=== PATIENT | female | born 1985 | race Caucasian/White ===

== ENCOUNTER → 2020-09-04 10:09 | Outpatient (BNVA) | payer BC, SELFPAY | PROVIDERS: Family Provider Electrodiagnostic Medicine; PCP Electrodiagnostic Medicine; Visit Provider Obstetrics & Gynecology | DX: Z01.419 Encounter for gynecological examination (general) (routine) without abnormal findings (principal); Z78.9 Other specified health status | CPT/HCPCS: 88175 ==

== ENCOUNTER → 2020-10-29 10:32 | Outpatient (BNVA) | payer BC, SELFPAY | PROVIDERS: Family Provider Electrodiagnostic Medicine; PCP Electrodiagnostic Medicine; Visit Provider Nurse Practitioner Family | DX: Z20.828 Contact with and (suspected) exposure to other viral communicable diseases (principal) | CPT/HCPCS: 87635 ==

== ENCOUNTER → 2022-09-26 16:58 | Outpatient (BNVA) | payer BC, SELFPAY | PROVIDERS: PCP Electrodiagnostic Medicine; Visit Provider Nurse Practitioner Women's Health | DX: R53.83 Other fatigue (principal); N93.9 Abnormal uterine and vaginal bleeding, unspecified; Z12.4 Encounter for screening for malignant neoplasm of cervix | CPT/HCPCS: 83036; 84439; 84443; 87624 ==

== ENCOUNTER 2022-10-16 15:02 | Outpatient (CLI) | payer BC, OTHER, SELFPAY ==
--- NOTE | 2022-10-16 15:09 | USCV_ITS ---
Rosa Bliss Age: 36 Gender: F : 1985 Exam Date: 10/16/2022 15:31 Ordering Phys: Parveen Cormier DO Technologist: Latoya Field Exam Location: [facility] – [place] Indication: heart murmur BP: 120 / 73 HR: 64 Rhythm: Sinus Technical Quality: Adequate MEASUREMENTS (Male / Female) Normal Values 2D ECHO LV Diastolic Diameter PLAX 4.0 cm 4.2 - 5.9 / 3.9 - 5.3 cm LV Systolic Diameter PLAX 2.3 cm LV Chamber Size 2.9 cm IVS Diastolic Thickness 1.0 cm 0.6 - 1.0 / 0.6 - 0.9 cm IVS Systolic Thickness 1.3 cm LVPW Diastolic Thickness 1.1 cm 0.6 - 1.0 / 0.6 - 0.9 cm LVPW Systolic Thickness 1.6 cm RV Chamber Size 2.0 cm LVOT Diameter 2.0 cm LV Ejection Fraction 2D Teich 72.5 % LV Ejection Fraction MOD 2C 76.9 % LV Ejection Fraction 2C AL 77.4 % LA Diameter 3.1 cm LA Width 2.7 cm LA Height 4.3 cm RA Width 2.6 cm RA Height 4.5 cm Aorta at Sinotubular Diameter 2.6 cm IVC Diameter 1.6 cm M-MODE Aortic Annulus Diameter 3.4 cm LA Ao Ratio MM 0.9 MV E Point Septal Separation 0.2 cm DOPPLER AV Peak Velocity 183.0 cm/s LVOT Peak Velocity 101.0 cm/s AV Area Cont Eq vti 2.3 cm squared AV Area Cont Eq pk 1.8 cm squared MV Area PHT 3.5 cm squared Mitral E to A Ratio 2.3 MV E' Velocity 63.0 cm/s Mitral E to MV E' Ratio 7.0 Mitral E to LV E' Lateral Ratio 6.4 Mitral E to LV E' Septal Ratio 7.6 TR Peak Velocity 146.8 cm/s TR Peak Gradient 8.6 mmHg TR Mean Velocity 106.7 cm/s TR Mean Gradient 4.9 mmHg TR Velocity Time Integral 35.9 cm TV Peak E Velocity 79.0 cm/s Right Atrial Pressure 3.0 mmHg Pulmonary Artery Systolic Pressu 11.6 mmHg RV Acceleration Time 0.1 s RV Ejection Time 0.4 s RV AcT/ET 0.4 FINDINGS Left Ventricle Normal left ventricular size and systolic function, EF 68 %. No regional wall motion abnormalities. Right Ventricle The right ventricle is normal in size and function. Right Atrium The right atrium is normal in size. Left Atrium The left atrium is normal in size. Mitral Valve Trace mitral valve regurgitation. Aortic Valve Appears to be tricuspid with no gross abnormalities Tricuspid Valve Trace tricuspid valve regurgitation. Pulmonic Valve No gross abnormalities noted Pericardium Normal pericardium without effusion. Aorta Normal ascending aorta dimension. IVC The inferior vena cava appears normal. CONCLUSIONS Normal left ventricular size and systolic function, EF 68 %. No regional wall motion abnormalities. Normal cardiac chamber sizes. No significant stenotic or regurgitant lesions There is no pericardial effusion. There are no intracardiac masses. No previous study is available for comparison. Dr Leonid Louie MD FACC (Electronically Signed) Final Date: 16 October 2022 19:45 S
== END 2022-10-16 15:03 | disposition home or self-care (01) ==
PROVIDERS: PCP Electrodiagnostic Medicine; Visit Provider Electrodiagnostic Medicine
DX: R01.1 Cardiac murmur, unspecified (principal)
CPT/HCPCS: 76830; 93306

== ENCOUNTER 2022-10-17 09:57 | Outpatient (CLI) | payer BC, OTHER, SELFPAY | END 2022-10-17 09:58 | disposition home or self-care (01) | LOC: SLEEP 10-18 09:57 | PROVIDERS: PCP Electrodiagnostic Medicine; Visit Provider Electrodiagnostic Medicine | DX: G47.10 Hypersomnia, unspecified (principal); G47.33 Obstructive sleep apnea (adult) (pediatric) | CPT/HCPCS: G0399 ==

== ENCOUNTER 2024-10-13 19:39 | Emergency (ER) | payer BC, OTHER, SELFPAY ==
[2024-10-13 19:44] VITALS: BP 166/94; PULSE 81; RESP 17; TEMP 37; O2SAT 98; BMI 32.4
--- NOTE | 2024-10-13 19:47 | ECG_ITS ---
[employer] Test Date: 2024-10-13 Pat Name: Rosa Bliss Department: Room: Gender: Female Tool Engineer: : 1985 Requested By: Elvia Cm Order Number: [id number] Montiel MD: Jordan Fonseca M.D. Measurements Intervals [place] Rate: 74 P: 60 OR: 147 QRS: 11 QRSD: 78 T: 1 QT: 347 QTc: 387 Interpretive Statements SINUS RHYTHM POSSIBLE ANTERIOR MYOCARDIAL INFARCTION , OF INDETERMINATE AGE [30 ms Q WAVE IN V3/V4, OR R < 0.2 mV IN V4] No previous ECG available for comparison Electronically Signed On 10-15-2024 18:41:48 POT RELINER by Jordan Fonseca M.D. [id number]
--- NOTE | 2024-10-13 19:50 | XRR_ITS ---
PROCEDURE INFORMATION: Exam: XR Chest Exam date and time: 10/13/2024 8:10 PM Age: 38 years old Clinical indication: Cough TECHNIQUE: Imaging protocol: Radiologic exam of the chest. Views: 1 view. COMPARISON: No relevant prior studies available. FINDINGS: Lungs: Unremarkable. No consolidation. Pleural spaces: Unremarkable. No pleural effusion. No pneumothorax. Heart/Mediastinum: Unremarkable. No cardiomegaly. Bones/joints: Unremarkable. XR/XR chest 1V portable [id number] IMPRESSION: No acute findings.
--- NOTE | 2024-10-13 19:54 | ECG_ITS ---
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 Measurements Intervals [place] Rate: 71 P: 64 [place]: 145 QRS: 9 QRSD: 71 T: 16 QT: 364 QTc: 398 Interpretive Statements SINUS RHYTHM POSSIBLE LEFT ATRIAL ENLARGEMENT [-0.1mV P-WAVE IN V1/V2] LOW QRS VOLTAGE IN PRECORDIAL LEADS [QRS DEFLECTION < 1.0 mV IN CHEST LEADS] POSSIBLE ANTERIOR MYOCARDIAL INFARCTION , OF INDETERMINATE AGE [30 ms Q WAVE IN V3/V4, OR R < 0.2 mV IN V4] No previous ECG available for comparison Electronically Signed On 10-15-2024 18:36:26 CELL CHANGER by Jordan Fonseca M.D. [id number]
--- NOTE | 2024-10-13 20:01 | ED_ITS ---
Documented by User: Elvia Cm MD 10/14/24 10:42 HPI - Chest Pain 2 General: Chief Complaint: Chest Pain Stated Complaint: coughing Time Seen by Provider: 10/13/24 19:50 Source: patient Mode of arrival: ambulatory Limitations: no limitations History of Present Illness: 38-year-old female states that she been having some chest and back pain been going on throughout the day states it has been sharp pains in her lower chest states she is also had a mild cough she states her pain is currently resolved she denies any worse or improving factors denies any shortness of breath denies any fever Associated symptoms: Deny abdominal pain, dyspnea, fever(s), nausea or vomiting Related Data Home Medications Medication Instructions Recorded Confirmed docosahexaenoic acid 200 mg mg PO 09/26/22 10/08/24 capsule (Algal [place]-3 DHA) lactobacillus combination no.9 4 PO 09/26/22 10/08/24 billion cell capsule (Adult 50 Plus Probiotic) multivitamin 1 tab PO DAILY 09/26/22 10/08/24 sertraline 25 mg tablet 25 mg PO DAILY 09/26/22 10/08/24 Previous Rx's Medication Instructions Recorded norethindrone acetate 1.5 1 tab PO DAILY #84 tabs 11/25/23 mg-ethinyl estradiol 30 mcg tablet (Junel) Allergies Allergy/AdvReac Type Severity Reaction Status Date / Time No Known Allergies Allergy Verified 10/08/24 12:51 Review of Systems 2 Const: Denies: fever(s), chills, body aches or change in appetite ENMT: Denies: throat pain or dental pain Card: Reports: chest pain Resp: Reports: non-productive cough; Denies: dyspnea GI: Denies: abdominal pain, nausea, vomiting or diarrhea Musc: Reports: back pain; Denies: neck pain Skin/Breast: Denies: rash Neuro: Denies: headache(s) PFSH ED 2 PFSH: Medical History Tricuspid regurgitation Mitral regurgitation No pertinent past medical history neghx: htn,dm,thyroid,dvt/pe PCP: [facility] History of seizures as a child States no seizures since kindergarten. Dysmenorrhea Surgical History No pertinent past surgical history Family History Grandmother Hypertension Maternal Heart disease Maternal Hypercholesterolemia Maternal Breast cancer Maternal; Diagnosed at age 30-40. Negative Gene testing. Uterine cancer Maternal; Patient states she had breast cancer and uterine or ovarian cancer at the same time. She is not sure which she had, uterine or ovarian. Grandfather Diabetes Paternal Father Colon cancer, Onset Age: 52 Mother Hypertension Denies family history of Stroke Social History Smoking and tobacco/nicotine status: never used tobacco/nicotine Physical Exam 2 Const: COMMON NORMALS: no acute distress, patient oriented x3 and healthy appearing HENMT: COMMON NORMALS: normocephalic and atraumatic HEAD & SCALP: n ormocephalic and atraumatic Eye: COMMON NORMALS: conjunctivae normal CONJUNCTIVA: Yes conjunctivae normal Neck/C-Spine: COMMON NORMALS: full ROM and supple Chest: COMMONS NORMALS: normal inspection of the chest and normal palpation of entire chest wall Resp: COMMON NORMALS: normal respiratory effort, No retractions, No use of accessory muscles and clear to auscultation bilaterally AUSCULTATION: clear to auscultation bilaterally Cardio: COMMON NORMALS: regular rate, regular rhythm and No murmurs present (Cardio) RATE: regular rate RHYTHM: regular rhythm GI: COMMON NORMALS: Normal to inspection, nondistended, normoactive bowel sounds present, Soft to palpation, non-tender and no masses PALPATION: Yes Soft to palpation Extremity: COMMON NORMALS: normal to inspection and full ROM Neuro: COMMON NORMALS: patient oriented x3, moves all extremities and no focal motor deficits Psych: COMMON NORMALS: mental status grossly normal, Normal thought process present and cooperative THOUGHT PROCESS: Normal thought process present Skin: COMMON NORMALS: no rashes or lesions noted and no wounds GENERAL SKIN EXAM: no rashes or lesions noted Course 2 Vital Signs: Vital signs: Vital Signs Temperature 98.6 F 10/13/24 19:44 Pulse Rate 70 10/13/24 22:41 Respiratory Rate 15 10/13/24 22:41 Blood Pressure 143/92 10/13/24 22:41 Pulse Oximetry 100 10/13/24 22:41 Oxygen Delivery Me thod Room Air 10/13/24 21:00 MDM - Chest Pain Medical Decision Making Care of patient discussed with me and transferred by Dr. Cm. Reported chest pain and cough throughout the day, no history of IN or stroke. Chest x-ray and EKG were unremarkable. Her troponin was normal and the rest of her blood work normal aside from very minimally elevated D-dimer. For this CTA ordered demonstrating no signs of PE or other concerning cardiothoracic findings. Very little concern for cardiac related chest pain, her vitals have been stable throughout ED stay, encouraged her to pursue outpatient cardiac workup through primary care and return with any new or worsening. She is comfortable with this plan and return precautions given. Patient presents for chest pain she has been well-appearing here no signs of ACS D-dimer was mildly positive CT showed no PE she is stable for discharge follow-up with PCP return if worsening. Medical Records I reviewed the patient's medical records. Lab Data I reviewed the patient's lab results. 10/13/24 20:07 10/13/24 20:07 Radiology Impressions Chest X-Ray 10/13/24 19:50 IMPRESSION: No acute findings. Chest CTA 10/13/24 20:58 IMPRESSION: 1. No pulmonary emboli. 2. No focal consolidations. Laboratory Results WBC 5.16 10^3/uL (3.29-11.43) 10/13/24 20:07 RBC 4.75 10^6/uL (3.85-5.65) 10/13/24 20:07 Hgb 13.40 g/dL (11.27-16.99) 10/13/24 20:07 Hct 41.9 % (36-47) 10/13/24 20:07 MCV 88.2 fl (85-98) 10/13/24 20:07 MCH 28.2 pg (27-33) 10/13/24 20:07 MCHC 32.0 g/dL (30-55) 10/13/24 20:07 RDW 13.7 % (12.1-15.1) 10/13/24 20:07 Plt Count 300 10^3/cmm (157-399) 10/13/24 20:07 MPV 10.4 fL (7.4-10.4) 10/13/24 20:07 Neut % (Auto) 43.2 % 10/13/24 20:07 Lymph % (Auto) 45.9 % 10/13/24 20:07 [place]aca % (Auto) 9.5 % 10/13/24 20:07 Eos % (Auto) 0.4 % 10/13/24 20:07 Baso % (Auto) 0.8 % 10/13/24 20:07 Neut # (Auto) 2.23 10^3/uL (1.8-7.7) 10/13/24 20:07 Lymph # (Auto) 2.4 10^3/uL (0.8-4.8) 10/13/24 20:07 [place] # (Auto) 0.5 10^3/uL (0.2-0.9) 10/13/24 20:07 Eos # (Auto) 0.0 10^3/uL (0.0-0.8) 10/13/24 20:07 Baso # (Auto) 0.0 10^3/uL (0.0-0.1) 10/13/24 20:07 Nucleated RBC % (auto) 0 % 10/13/24 20:07 Nucleated RBCs # 0.0 /100WBC 10/13/24 20:07 D-Dimer 0.64 ug/mLFEU (0-0.59) H 10/13/24 20:07 Sodium 136 mmol/L (136-145) 10/13/24 20:07 Potassium 4.0 mmol/L (3.5-5.1) 10/13/24 20:07 Chloride 102 mmol/L (98-107) 10/13/24 20:07 Carbon Dioxide 24 mmol/L (22-29) 10/13/24 20:07 Anion Gap 14.0 (5-19) 10/13/24 20:07 BUN 13 mg/dL (6-20) 10/13/24 20:07 Creatinine 0.7 mg/dL (0.5-0.9) 10/13/24 20:07 GFR Calculation 94.2 mL/min (90-130) 10/13/24 20:07 Glucose 137 mg/dL (65-115) H 10/13/24 20:07 Calculated Osmolality 284 mOsm/kg (285-295) L 10/13/24 20:07 Calcium 9.4 mg/dL (8.5-10.5) 10/13/24 20:07 Total Bilirubin 0.2 mg/dL (0.15-1.2) 10/13/24 20:07 AST 14 U/L (0-32) 10/13/24 20:07 ALT 17 U/L (0-33) 10/13/24 20:07 Alkaline Phosphatase 90 U/L (35-105) 10/13/24 20:07 Troponin T Baseline < 6 ng/L (0-10) 10/13/24 20:07 Troponin T 120 Minute 6.00 ng/L (0-10) 10/13/24 22:08 Delta Troponin T 0.66679 ABS# (0-10) 10/13/24 22:08 Total Protein 7.3 g/dL (6.6-8.7) 10/13/24 20:07 Albumin 4.0 g/dL (3.5-5.2) 10/13/24 20:07 Globulin 3.3 g/dL (1.3-4.6) 10/13/24 20:07 Lipase 55 U/L (13-60) 10/13/24 20:07 HCG, Qual Negative (Negative) 10/13/24 20:07 All radiology interpretation(s) finalized by discharge EKG Data EKG 1: I personally reviewed and interpreted this EKG as follows: EKG interpretation date: 10/13/24 EKG interpretation time: 19:48 Interpretation: nsr hr [address] elevation qrs 71qtc 387 Discharge Plan Discharge Patient Disposition: Home Clinical Impression: Chest pain Qualifiers: Chest pain type: unspecified Qualified Code(s): R07.9 - Chest pain, unspecified Condition: Stable Prescriptions: No Action sertraline 25 mg tablet 25 mg PO DAILY multivitamin Tablet 1 tab PO DAILY Adult 50 Plus Probiotic 4 billion cell capsule PO Algal [place]-3 DHA 200 mg capsule PO norethindrone ac-eth estradiol [ ()] 1.5-30 mg-mcg tablet 1 tab PO DAILY Qty: 84 5RF Rx Instructions: continuous CHC's-- allow for adequate refills x 1 year Discharge Orders: Discharge ED (Routine); Ordered 10/13/24 Ordered By: Nicholas Santamaria Referrals: Parveen Cormier DO [Primary Care Provider] - 4-7 days Discharge Diet: Advance as tolerated Discharge Activity: Resume usual activity Patient Instructions: Chest Pain (ED) Coding Level of Care Code ED Manager Administrative for Antonio Fwd Documented by User: NIK De La Torre 10/13/24 22:08 HPI - Chest Pain 2 General: Chief Complaint: Chest Pain Stated Complaint: coughing Time Seen by Provider: 10/13/24 19:50 Related Data Home Medications Medication Instructions Recorded Confirmed docosahexaenoic acid 200 mg mg PO 09/26/22 10/08/24 capsule (Algal [place]-3 DHA) lactobacillus combination no.9 4 PO 09/26/22 10/08/24 billion cell capsule (Adult 50 Plus Probiotic) multivitamin 1 tab PO DAILY 09/26/22 10/08/24 sertraline 25 mg tablet 25 mg PO DAILY 09/26/22 10/08/24 Previous Rx's Medication Instructions Recorded norethindrone acetate 1.5 1 tab PO DAILY #84 tabs 11/25/23 mg-ethinyl estradiol 30 mcg tablet (Junel) Allergies Allergy/AdvReac Type Severity Reaction Status Date / Time No Known Allergies Allergy Verified 10/08/24 12:51 PFSH ED 2 PFSH: Medical History Tricuspid regurgitation Mitral regurgitation No pertinent past medical history neghx: htn,dm,thyroid,dvt/pe PCP: [facility] History of seizures as a child States no seizures since kindergarten. Dysmenorrhea Surgical History No pertinent past surgical history Family History Grandmother Hypertension Maternal Heart disease Maternal Hypercholesterolemia Maternal Breast cancer Maternal; Diagnosed at age 30-40. Negative Gene testing. Uterine cancer Maternal; Patient states she had breast cancer and uterine or ovarian cancer at the same time. She is not sure which she had, uterine or ovarian. Grandfather Diabetes Paternal Father Colon cancer, Onset Age: 52 Mother Hypertension Denies family history of Stroke Social History Smoking and tobacco/nicotine status: never used tobacco/nicotine Course 2 Vital Signs: Vital signs: Vital Signs Temperature 98.6 F 10/13/24 19:44 Pulse Rate 70 10/13/24 22:41 Respiratory Rate 15 10/13/24 22:41 Blood Pressure 143/92 10/13/24 22:41 Pulse Oximetry 100 10/13/24 22:41 Oxygen Delivery Me thod Room Air 10/13/24 21:00 MDM - Chest Pain Medical Decision Making Care of patient discussed with me and transferred by Dr. Cm. Reported chest pain and cough throughout the day, no history of IN or stroke. Chest x-ray and EKG were unremarkable. Her troponin was normal and the rest of her blood work normal aside from very minimally elevated D-dimer. For this CTA ordered demonstrating no signs of PE or other concerning cardiothoracic findings. Very little concern for cardiac related chest pain, her vitals have been stable throughout ED stay, encouraged her to pursue outpatient cardiac workup through primary care and return with any new or worsening. She is comfortable with this plan and return precautions given. Lab Data 10/13/24 20:07 10/13/24 20:07 Radiology Impressions Chest X-Ray 10/13/24 19:50 IMPRESSION: No acute findings. Chest CTA 10/13/24 20:58 IMPRESSION: 1. No pulmonary emboli. 2. No focal consolidations. Laboratory Results WBC 5.16 10^3/uL (3.29-11.43) 10/13/24 20:07 RBC 4.75 10^6/uL (3.85-5.65) 10/13/24 20:07 Hgb 13.40 g/dL (11.27-16.99) 10/13/24 20:07 Hct 41.9 % (36-47) 10/13/24 20:07 MCV 88.2 fl (85-98) 10/13/24 20:07 MCH 28.2 pg (27-33) 10/13/24 20:07 MCHC 32.0 g/dL (30-55) 10/13/24 20:07 RDW 13.7 % (12.1-15.1) 10/13/24 20:07 Plt Count 300 10^3/cmm (157-399) 10/13/24 20:07 MPV 10.4 fL (7.4-10.4) 10/13/24 20:07 Neut % (Auto) 43.2 % 10/13/24 20:07 Lymph % (Auto) 45.9 % 10/13/24 20:07 [place]aca % (Auto) 9.5 % 10/13/24 20:07 Eos % (Auto) 0.4 % 10/13/24 20:07 Baso % (Auto) 0.8 % 10/13/24 20:07 Neut # (Auto) 2.23 10^3/uL (1.8-7.7) 10/13/24 20:07 Lymph # (Auto) 2.4 10^3/uL (0.8-4.8) 10/13/24 20:07 [place] # (Auto) 0.5 10^3/uL (0.2-0.9) 10/13/24 20:07 Eos # (Auto) 0.0 10^3/uL (0.0-0.8) 10/13/24 20:07 Baso # (Auto) 0.0 10^3/uL (0.0-0.1) 10/13/24 20:07 Nucleated RBC % (auto) 0 % 10/13/24 20:07 Nucleated RBCs # 0.0 /100WBC 10/13/24 20:07 D-Dimer 0.64 ug/mLFEU (0-0.59) H 10/13/24 20:07 Sodium 136 mmol/L (136-145) 10/13/24 20:07 Potassium 4.0 mmol/L (3.5-5.1) 10/13/24 20:07 Chloride 102 mmol/L (98-107) 10/13/24 20:07 Carbon Dioxide 24 mmol/L (22-29) 10/13/24 20:07 Anion Gap 14.0 (5-19) 10/13/24 20:07 BUN 13 mg/dL (6-20) 10/13/24 20:07 Creatinine 0.7 mg/dL (0.5-0.9) 10/13/24 20:07 GFR Calculation 94.2 mL/min (90-130) 10/13/24 20:07 Glucose 137 mg/dL (65-115) H 10/13/24 20:07 Calculated Osmolality 284 mOsm/kg (285-295) L 10/13/24 20:07 Calcium 9.4 mg/dL (8.5-10.5) 10/13/24 20:07 Total Bilirubin 0.2 mg/dL (0.15-1.2) 10/13/24 20:07 AST 14 U/L (0-32) 10/13/24 20:07 ALT 17 U/L (0-33) 10/13/24 20:07 Alkaline Phosphatase 90 U/L (35-105) 10/13/24 20:07 Troponin T Baseline < 6 ng/L (0-10) 10/13/24 20:07 Troponin T 120 Minute 6.00 ng/L (0-10) 10/13/24 22:08 Delta Troponin T 0.64739 ABS# (0-10) 10/13/24 22:08 Total Protein 7.3 g/dL (6.6-8.7) 10/13/24 20:07 Albumin 4.0 g/dL (3.5-5.2) 10/13/24 20:07 Globulin 3.3 g/dL (1.3-4.6) 10/13/24 20:07 Lipase 55 U/L (13-60) 10/13/24 20:07 HCG, Qual Negative (Negative) 10/13/24 20:07 Discharge Plan Discharge Patient Disposition: Home Clinical Impression: Chest pain Qualifiers: Chest pain type: unspecified Qualified Code(s): R07.9 - Chest pain, unspecified Condition: Stable Prescriptions: No Action sertraline 25 mg tablet 25 mg PO DAILY multivitamin Tablet 1 tab PO DAILY Adult 50 Plus Probiotic 4 billion cell capsule PO Algal [place]-3 DHA 200 mg capsule PO norethindrone ac-eth estradiol [ (21)] 1.5-30 mg-mcg tablet 1 tab PO DAILY Qty: 84 5RF Rx Instructions: continuous CHC's-- allow for adequate refills x 1 year Discharge Orders: Discharge ED (Routine); Ordered 10/13/24 Ordered By: Nicholas Santamaria Referrals: Parveen Cormier DO [Primary Care Provider] - 4-7 days Discharge Diet: Advance as tolerated Discharge Activity: Resume usual activity Patient Instructions: Chest Pain (ED) Coding Level of Care Code ED Manager Administrative for Antonio Guerrero
[2024-10-13 20:08] VITALS: BP 157/101; PULSE 84; RESP 16; O2SAT 99
[2024-10-13 20:17] LABS: Basophils % 0.8 %; Eosinophils % 0.4 %; Hematocrit 41.9 % (36-47); Lymphocytes # 2.4 10^3/uL (0.8-4.8); Lymphocytes % 45.9 %; Mean Corpuscular Hemoglobin 28.2 pg (27-33); Mean Corpuscular Volume 88.2 fl (85-98); Mean Platelet Volume 10.4 fL (7.4-10.4); Monocytes # 0.5 10^3/uL (0.2-0.9); Monocytes % 9.5 %; Neutrophils # 2.23 10^3/uL (1.8-7.7); Neutrophils % 43.2 %; Nucleated Red Blood Cells % 0 %; Platelet Count 300 10^3/cmm (157-399); Red Blood Count 4.75 10^6/uL (3.85-5.65); Red Cell Distribution Width 13.7 % (12.1-15.1); White Blood Count 5.16 10^3/uL (3.29-11.43)
[2024-10-13 20:43] LABS: HCG, Serum Qual Negative (Negative)
[2024-10-13 20:47] LABS: Troponin(5th) Baseline < 6 ng/L (0-10)
[2024-10-13 20:50] LABS: Alanine Aminotransferase 17 U/L (0-33); Alkaline Phosphatase 90 U/L (35-105); Aspartate Amino Transferase 14 U/L (0-32); Blood Urea Nitrogen 13 mg/dL (6-20); Calcium 9.4 mg/dL (8.5-10.5); Carbon Dioxide 24 mmol/L (22-29); Chloride 102 mmol/L (98-107); Creatinine Clr Calc Pharmacy 112.2912; Globulin 3.3 g/dL (1.3-4.6); Glomerular Filtration Rate 94.2 mL/min (90-130); Glucose 137 mg/dL (65-115); Lipase 55 U/L (13-60); Osmolality Calculated 284 mOsm/kg (285-295); Sodium 136 mmol/L (136-145); Total Bilirubin 0.2 mg/dL (0.15-1.2); Total Protein 7.3 g/dL (6.6-8.7)
[2024-10-13 20:55] LABS: D Dimer 0.64 ug/mLFEU (0-0.59)
--- NOTE | 2024-10-13 20:58 | CTR_ITS ---
PROCEDURE INFORMATION: Exam: CTA Chest With Contrast Exam date and time: 10/13/2024 9:05 PM Age: 38 years old Clinical indication: Shortness of breath; Additional info: SOB TECHNIQUE: Imaging protocol: Computed tomographic angiography of the chest with contrast. Exam focused on the arteries. 3D rendering (Not supervised by radiologist): MIP and/or 3D reconstructed images were created by the technologist. Radiation optimization: All CT scans at this facility use at least one of these dose optimization techniques: automated exposure control; mA and/or kV adjustment per patient size (includes targeted exams where dose is matched to clinical indication); or iterative reconstruction. Contrast material: OMNI 350; Contrast volume: 57 ml; Contrast route: INTRAVENOUS (IV); COMPARISON: CR (CHEST, ) 10/13/2024 8:10 PM RADIATION DOSE METRICS: Total DLP (mGy-cm): 790.13 FINDINGS: Pulmonary arteries: No pulmonary emboli. Aorta: Unremarkable. No aortic aneurysm. No aortic dissection. 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 Lungs: No focal consolidations. Pleural spaces: Unremarkable. No pneumothorax. No pleural effusion. Heart: Unremarkable. No cardiomegaly. No pericardial effusion. Lymph nodes: Unremarkable. No enlarged lymph nodes. Gallbladder and biliary ducts: Multiple stones in the gallbladder with no pericholecystic fluid. Bones/joints: Unremarkable. No acute fracture. Soft tissues: Unremarkable. CT/CT angio chest PE protcl [id number] IMPRESSION: 1. No pulmonary emboli. 2. No focal consolidations.
[2024-10-13 21:00] VITALS: BP 155/89; PULSE 65; RESP 16; O2SAT 99
[2024-10-13] MEDS: iohexol 350 mg/mL 500 mL Btl (per mL) IV (21:32)
[2024-10-13 22:29] LABS: Troponin 5 2HR Delta 0.00001 ABS# (0-10)
[2024-10-13 22:41] VITALS: BP 143/92; PULSE 70; RESP 15; O2SAT 100
== END 2024-10-13 22:18 | disposition home or self-care (01) ==
PROVIDERS: Emergency Provider Emergency Medicine; PCP Electrodiagnostic Medicine
DX: R07.9 Chest pain, unspecified (principal)
CPT/HCPCS: 36415; 71045; 71275; 80053; 83690; 84484; 84703; 85025; 85378; 93005; 99285

== ENCOUNTER → 2024-10-26 08:36 | Outpatient (BNVA) | payer BC, OTHER, SELFPAY | PROVIDERS: PCP Electrodiagnostic Medicine; Visit Provider Nurse Practitioner Women's Health | DX: N92.6 Irregular menstruation, unspecified (principal) | CPT/HCPCS: 76830 ==

== ENCOUNTER → 2025-02-10 09:20 | Outpatient (BNVA) | payer BC, SELFPAY | PROVIDERS: PCP Electrodiagnostic Medicine; Visit Provider Internal Medicine | DX: R07.9 Chest pain, unspecified (principal); R94.31 Abnormal electrocardiogram [ECG] [EKG] | CPT/HCPCS: 93005 ==

== ENCOUNTER 2025-03-18 11:53 | Outpatient (CLI) | payer BC, SELFPAY ==
--- NOTE | 2025-03-18 | ECG_ITS ---
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 Baseline heart rate was 67 beats per minute. Baseline blood pressure was 148/68 millimeters of mercury. Target heart rate was 182 beats per minute. Maximum heart rate achieved was 164, which was 90% of the target heart rate. Maximum blood pressure was 195/88 millimeters of mercury. Total exercise time was 6 minutes 32 seconds. Maximum METs achieved was 10.2, maximum VO2 was 35.7. The reason for ending the test was maximum effort achieved. The patient complained of during the stress test, which then resolved at the end of the test. ELECTROCARDIOGRAM: BASELINE: Showed sinus rhythm, normal axis, no significant ST-T changes at the baseline noted. EXERCISE: At the peak exercise level, no significant ST-T changes suggestive of ischemia noted. RECOVERY: During the recovery period, heart rate dropped appropriately. No significant ST-T changes in the recovery suggestive of ischemia noted. CONCLUSION: 1. Exercise capacity was fair. 2. Heart rate response was appropriate. 3. Blood pressure response was hypertensive. 4. Symptoms not suggestive of ischemia. 5. Electrocardiogram portion of the stress test was not suggestive of ischemia. Electronically Signed On 03-27-2025 20:22:47 CDT by CAYETANO CALHOUN [id number]
[2025-03-18 12:00] VITALS: BMI 33.8
[2025-03-18 12:32] VITALS: BP 163/62; PULSE 98
== END 2025-03-18 11:54 | disposition home or self-care (01) ==
LOC: CDL 11:55
PROVIDERS: PCP Electrodiagnostic Medicine; Visit Provider Internal Medicine
DX: R07.9 Chest pain, unspecified (principal); R06.02 Shortness of breath; R93.1 Abnormal findings on diagnostic imaging of heart and coronary circulation
CPT/HCPCS: 93017

== ENCOUNTER 2025-09-14 15:05 | Outpatient (CLI) | payer BC, SELFPAY ==
--- NOTE | 2025-09-14 15:16 | MR_ITS ---
WS: [id number] MRI HEAD WITH CONTRAST TECHNIQUE: Sagittal T1, T2 axial, T2 axial FLAIR, axial susceptibility weighted imaging, axial diffusion weighted images, and coronal T2 images were obtained. Pre and post-T1 axial and post T1 coronal images. ADC and FSPGR images. CLINICAL INFORMATION: EPILEPSY COMPARISON: None. FINDINGS: No evidence of restricted diffusion to suggest acute ischemia. No suspicious intracranial signal abnormalities. No extra-axial fluid collections. No evidence of mass or mass effect. Paranasal sinuses and mastoid air cells are well aerated. No hemosiderin. Normal optic chiasm and pituitary infundibulum. Temporal lobes and hippocampal formations are normal in appearance. No signal abnormalities in the mesial temporal lobes. No abnormal gadolinium enhancement. Normal deep dural venous sinuses. No other acute findings. MR/MR head wo/w con [id number] IMPRESSION: 1. No evidence of restricted diffusion to suggest acute ischemia. 2. No suspicious intracranial signal abnormalities. 3. No hemosiderin on susceptibility-weighted images. 4. Temporal lobes and hippocampal formations are normal in appearance. 5. No abnormal gadolinium enhancement.
[2025-09-14] MEDS: gadobenate dimeglumine 20 mL vial 19 ML IV (15:51)
== END 2025-09-14 15:06 | disposition home or self-care (01) ==
LOC: RAD 15:06
PROVIDERS: PCP Electrodiagnostic Medicine; Visit Provider Electrodiagnostic Medicine
DX: G40.909 Epilepsy, unspecified, not intractable, without status epilepticus (principal)
CPT/HCPCS: 70553; A9577